=== PATIENT | female | born 1945 | race Caucasian/White ===

== ENCOUNTER → 2017-01-01 | Outpatient (CLI) | payer OTHER | LOC: BMCIMAGING 12:51 | PROVIDERS: ATTEND Internal Medicine | DX: N63 Unspecified lump in breast (principal); Z85.3 Personal history of malignant neoplasm of breast ==

== ENCOUNTER 2017-06-12 11:15 | Inpatient (IN) | payer OTHER ==
[2017-06-28] MEDS ORDERED: TRANEXAMIC ACID 3,000 MG in NS 50 ML IRR ONE (06:00)
[2017-06-28] MEDS ORDERED: ROPIVACAINE 0.2% 80 MG, EPINEPHrine 0.2 MG, KETOROLAC TROMETHAMINE 30 MG in BAG 0 ML IU ONE (06:00)
--- NOTE | 2017-06-28 07:06 | PDHPUP ---
History & Physical Update H&P update statement: This history and physical update is based on an assessment of the patient which was completed after admission or registration (within 24 hours), but prior to the surgery/procedure. H&P update: H&P reviewed & patient examined, no change in patient's condition since H&P completed
[2017-06-28] MEDS ORDERED: TRANEXAMIC ACID 3,000 MG/50 ML BAG IRR ONE (07:14)
[2017-06-28] MEDS ORDERED: VANCOMYCIN 1 GM VIAL ONE (07:14)
[2017-06-28] MEDS ORDERED: ACETAMINOPHEN 325 MG TAB PO ONE (07:29)
[2017-06-28] MEDS ORDERED: FAMOTIDINE 20 MG TAB PO ONE (07:29)
[2017-06-28] MEDS ORDERED: DEXAMETHASONE 4 MG/ML VIAL IVP ONE (07:29)
[2017-06-28] MEDS ORDERED: ceFAZolin 2 GM/DEXTROSE 100 ML IV ONE (07:29)
[2017-06-28] MEDS ORDERED: MIDAZOLAM 2 MG/2 ML VIAL IVP ONE (07:57)
--- NOTE | 2017-06-28 07:59 | PDANEPAE ---
ANE History of Present Illness r knee osteoarthrtitis, knee pain ANE Past Medical History - Cardiovascular History Hx Hypertension: Yes Hx Arrhythmias: No Hx Chest Pain: No Hx Coronary Artery / Peripheral Vascular Disease: No Hx CHF / Valvular Disease: No Hx Palpitations: No - Pulmonary History Hx COPD: No Hx Asthma/Reactive Airway Disease: No Hx Recent Upper Respiratory Infection: No Hx Oxygen in Use at Home: No Hx Sleep Apnea: No Sleep Apnea Screening Result - Last Documented: Negative - Neurologic History Hx Cerebrovascular Accident: No Hx Seizures: No Hx Dementia: No - Endocrine History Hx Diabetes: No - Renal History Hx Renal Disorders: No - Liver History Hx Hepatic Disorders: No - Neurological & Psychiatric Hx Hx Neurological and Psychiatric Disorders: No - Cancer History Hx Cancer: Yes 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 rotator cuff-bilat. tonsillectomy age 6. T.L. ANE Review of Systems Review of Systems: - Exercise capacity METS (RN): 4 METS ANE Patient History - Allergies Allergies/Adverse Reactions: Penicillins Allergy (Verified 05/29/17 14:28) Rash - Home Medications Home Medications: Losartan/Hydrochlorothiazide [Losartan-Hctz 50-12.5 mg Tab] 1 each PO DAILY [Last Taken Unknown] Pravastatin Sodium 20 mg PO HS 05/29/17 [Last Taken Unknown] - Smoking Hx Smoking Status: Never smoked ANE Labs/Vital Signs - Vital Signs Height: 158.75 cm Weight: 53.977 kg ANE Physical Exam - Airway Neck exam: FROM Mallampati Score: Class 1 Mouth exam: normal dental/mouth exam - Pulmonary Pulmonary: no respiratory distress - Cardiovascular Cardiovascular: regular rate and rhythym - ASA Status ASA Status: II ANE Anesthesia Plan Anesthesia Plan: MAC, spinal Regional Anesthesia: adductor canal FNB
[2017-06-28] MEDS ORDERED: LIDOCAINE 1% 2 ML INJ ID PRN (08:12)
[2017-06-28] MEDS ORDERED: LR 1,000 ML IV ONE (08:12)
[2017-06-28] MEDS ORDERED: fentaNYL 100 MCG/2 ML INJ ONE (08:45)
[2017-06-28] MEDS ORDERED: PROPOFOL/EMULSION 500 MG/50 ML BOTTLE IV ONE (08:45)
[2017-06-28] MEDS ORDERED: DIPHENOXYLATE/ATROPINE LOMOTIL 1 TAB PO PRN (08:53)
[2017-06-28] MEDS ORDERED: TEMAZEPAM 15 MG CAP PO PRN (08:53)
[2017-06-28] MEDS ORDERED: PROMETHAZINE HCL 25 MG/ML INJ IVP PRN (08:53)
[2017-06-28] MEDS ORDERED: BISACODYL 10 MG SUPP PR PRN (08:53)
[2017-06-28] MEDS ORDERED: METOCLOPRAMIDE 10 MG/2 ML VIAL IVP PRN (08:53)
[2017-06-28] MEDS ORDERED: ONDANSETRON DISINTEGRATING 4 MG TAB PO PRN (08:53)
[2017-06-28] MEDS ORDERED: CYCLOBENZAPRINE 10 MG TAB PO PRN (08:53)
[2017-06-28] MEDS ORDERED: MAGNESIUM HYDROXIDE 30 ML UDCUP PO PRN (08:53)
[2017-06-28] MEDS ORDERED: POLYETHYLENE GLYCOL 3350 17 GM PKT PO PRN (08:53)
[2017-06-28] MEDS ORDERED: diphenhydrAMINE 25 MG CAP PO PRN (08:53)
[2017-06-28] MEDS ORDERED: LACTULOSE 20 GM/30 ML UDCUP PO PRN (08:53)
[2017-06-28] MEDS ORDERED: PROMETHAZINE HCL 25 MG SUPPR PR PRN (08:53)
[2017-06-28] MEDS ORDERED: ONDANSETRON 4 MG/2 ML VIAL IVP PRN (08:53)
[2017-06-28] MEDS ORDERED: NALOXONE HCL 0.4 MG/ML INJ IVP PRN (09:18)
[2017-06-28] MEDS ORDERED: HYDROmorphONE/DILAUDID 1 MG/ML INJ IVP PRN (09:18)
[2017-06-28] MEDS ORDERED: fentaNYL 100 MCG/2 ML INJ IVP PRN (09:18)
[2017-06-28] MEDS ORDERED: ROCURONIUM 50 MG/5 ML VIAL ONE ×2 (09:58)
--- NOTE | 2017-06-28 10:14 | POSTOPPROG ---
Post Op Note Date of Operation: 06/28/17 Surgeon: Beverly Carballo [employer] Specialist Manager: Hanna Anesthesiologist: Jay Anesthesia: Spinal Pre-op Diagnosis: R knee DJD Post-op Diagnosis: same Indication: pain Procedure: R TKA Findings: DJD knee Inf/Abcess present in the surg proc area at time of surgery?: No EBL: 100-500
--- NOTE | 2017-06-28 10:18 | POSTANESTH ---
Post Anesthetic Evaluation Cardiovascular Status: Normal, Stable Respiratory Status: Normal, Stable Level of Consciousness/Mental Status: Can Participate in Eval Pain Control: Adequate, Prn Tx Ordered Nausea/Vomiting Control: Adequate, Prn Tx Ordered Complications Possibly Related to Anesthesia: None Noted
[2017-06-28] MEDS: ACETAMINOPHEN 325 MG TAB PO SCH ×3 (12:58→23:32)
[2017-06-28] MEDS: LOSARTAN/HCTZ 50/12.5 1 TAB PO SCH (13:04)
[2017-06-28] MEDS: SENNOSIDES/DOCUSATE SODIUM TAB PO SCH ×2 (14:05→21:26)
[2017-06-28] MEDS: LR 1,000 ML IV SCH ×2 (15:48→23:33)
[2017-06-28] MEDS: ceFAZolin 2 GM/DEXTROSE 100 ML IV SCH ×2 (15:48→21:28)
[2017-06-28 16:19] VITALS: RESP 16
[2017-06-28] MEDS: oxyCODONE IR 5 MG TAB PO PRN ×2 (19:33→23:33)
[2017-06-28] MEDS ORDERED: PRAVASTATIN SODIUM 20 MG TAB PO SCH (21:00)
[2017-06-28] MEDS: ASPIRIN 325 MG TAB PO SCH (21:27)
[2017-06-28] MEDS: FAMOTIDINE 20 MG TAB PO SCH (21:27)
--- NOTE | 2017-06-29 00:29 | GOP ---
[f rep st] OPERATIVE REPORT DATE OF OPERATION: 06/28/2017 SURGEON: Pili Carballo MD ANESTHESIA: Spinal. PREOPERATIVE DIAGNOSIS: Right knee osteoarthritis. POSTOPERATIVE DIAGNOSIS: Right knee osteoarthritis. PROCEDURE PERFORMED: Right total knee arthroplasty. FINDINGS: ESTIMATED BLOOD LOSS: 30 cc. INDICATIONS: This is a 71-year-old elderly female with severe and progressive pain and deformity of the right knee unresponsive to conservative care. Risks and benefits of the surgical intervention were explained in detail. DESCRIPTION OF PROCEDURE: The patient was brought to the operative room and placed on the table in the supine position. Spinal anesthesia was induced without difficulty. A pneumatic tourniquet was applied about the right proximal thigh, and the leg was prepped and draped in a sterile fashion. The leg fagan was applied. After exsanguination by elevation the tourniquet was inflated to 250 mm of mercury. Incision was made anterior medial from the tibial tuberosity to a point 2 cm proximal to the superior pole of the patella. Medial parapatellar arthrotomy was carried out from the superior pole of the patella and posteriorly in line with the fibers of the Type 2 VMO. The medial collateral ligament was elevated and the infrapatellar fat pad was resected. The patella was everted and the articular surface was excised. A 32 mm patellar button was placed. The distal femoral guide hole was drilled and the 60 degree alignment charis was placed. A 10 mm distal femoral cut was made without difficulty. Attention was turned to the tibia and a standard 9 mm cut based on the lateral tibial condyle was performed. The tibial articular surface was excised without difficulty. Attention was turned back to the femur and a size 2 femoral cutting block was positioned. Anterior, posterior, and chamfer cuts were made, followed by the intercondylar box cut. The knee was extended and the remnants of the medial and lateral meniscus were excised. The posterior capsule was injected with ropivacaine, epinephrine and Toradol. A size 32 triathlon tibial tray was positioned. Trial reduction was then carried out. There was excellent range of motion, alignment, and stability using the 11 mm polyethylene. All trials were then removed. The joint was thoroughly irrigated and carefully dried. Two packages of cement and 2 grams of vancomycin were mixed in the vacuum mixer and placed on the fixation surfaces of all surfaces of the components. The components were implanted and all excess cement was thoroughly removed. The permanent 11 mm polyethylene was placed without difficulty. The tourniquet was deflated and all bleeders were coagulated. The wound was thoroughly irrigated and closed using interrupted sutures of 2-0 Vicryl for the joint capsule. The subcu was closed with 3-0 Vicryl and the skin with 4-0 Monocryl. Dermabond and Steri-Strips were applied followed by a compressive dressing. The patient was then moved from the operating room to the recovery room in good condition, having tolerated the procedure well. PATHOLOGY: Severe patellofemoral medial compartmental osteoarthritis. /[id number]/MODL MTDD
[2017-06-29 05:10] VITALS: TEMP 98.4
[2017-06-29 05:11] LABS: HEMATOCRIT 30.6 % (38.0-47.0); HEMOGLOBIN 10.6 g/dL (12.6-16.3)
[2017-06-29] MEDS: ACETAMINOPHEN 325 MG TAB PO SCH ×2 (05:16→10:48)
[2017-06-29] MEDS: oxyCODONE IR 5 MG TAB PO PRN ×2 (05:17→10:49)
[2017-06-29 07:18] VITALS: BP 133/85; PULSE 62; O2SAT 100
[2017-06-29] MEDS: LOSARTAN/HCTZ 50/12.5 1 TAB PO SCH (09:03)
[2017-06-29] MEDS: SENNOSIDES/DOCUSATE SODIUM TAB PO SCH (09:04)
[2017-06-29] MEDS: ASPIRIN 325 MG TAB PO SCH (09:04)
[2017-06-29] MEDS: FAMOTIDINE 20 MG TAB PO SCH (09:05)
--- NOTE | 2017-06-29 10:23 | SOAPPROG ---
<Elías Luong - Last Filed: 06/29/17 10:22> SOAP Progress Note Assessment/Plan: Assessment: Patient is doing well POD 1 s/p R TKA Pain management: pain is well controlled on oral pain meds. VTE ppx: recommend aspirin daily for 3 weeks, cont AURE and SCDs Anemia: level is expected initially postop. Asymptomatic. Continue to monitor D/c planning: d/c to home today pending release from PT Plan: 06/29/17 10:22 Objective: Vital Signs Temp Pulse Resp BP Pulse Ox 36.9 C 62 16 133/85 H 100 06/29/17 07:16 06/29/17 07:16 06/29/17 07:16 06/29/17 07:16 06/29/17 07:16 Laboratory Results 06/29/17 04:58 06/28/17 06/29/17 06/30/17 05:59 05:59 05:59 Intake Total 1663 Output Total 100 Balance 1563 ICD10 Worksheet Patient Problems: Problems Problem Status Onset Osteoarthritis of knee Acute - ICD10 Problem Qualifiers (1) Osteoarthritis of knee QualifierTitle: Osteoarthritis type: primary Laterality: right Qualified Code(s): M17.11 - Unilateral primary osteoarthritis, right knee <Beverly Carballo - Last Filed: 06/29/17 11:52> SOAP Progress Note Assessment/Plan: Assessment: Small amount of drainage on dressing. Dressing changed Plan: 06/29/17 11:52 Objective: Vital Signs Temp Pulse Resp BP Pulse Ox 36.9 C 62 16 133/85 H 100 06/29/17 07:16 06/29/17 07:16 06/29/17 07:16 06/29/17 07:16 06/29/17 07:16 Laboratory Results 06/29/17 04:58 06/28/17 06/29/17 06/30/17 05:59 05:59 05:59 Intake Total 1663 Output Total 100 Balance 1563
--- NOTE | 2017-06-29 11:56 | ASDISCHSUM ---
Discharge Information Plan Status:Home with No Needs Medically Cleared to Leave:06/29/2017 Discharge Date:06/29/2017 CM D/C Disposition:Home, Routine, Self-Care ADT D/C Disposition:Home, Routine, Self-Care Projected Discharge Date:06/29/2017 01:00 PM Transportation at D/C:Family Discharge Delay Reason: Follow-Up Date:06/29/2017 01:00 PM Discharge Slot: Final Diagnosis:Osteoarthritis of knee Placement Information Patient Contact Information Contact Name:MACI Relationship:Daughter Address: Work Phone: City: [facility] Phone: State/[place] Code: Email: Financial Information Financial Class:MC Primary Plan Desc:MEDICARE INPATIENT Primary Plan Number:[id number] Secondary Plan Desc:[employer] PPO Secondary Plan Number:[id number] Assessment Information Intervention Information
--- NOTE | 2017-06-29 11:57 | ASMTCMCOM ---
CM Note CM Note Notes: Patient discharging home to follow up with outpatien physical therapy. No additional case management needs apparent at this time. Date Signed: 06/29/2017 11:57 AM Electronically Signed By:LESA Frederick
== END 2017-06-29 12:05 | disposition home or self-care (01) | DRG 470 ==
LOC: F3N 06-28 06:06
PROVIDERS: ADMIT Orthopaedic Surgery; ATTEND Orthopaedic Surgery
PROC: 0SRC0J9 Replacement of Right Knee Joint with Synthetic Substitute, Cemented, Open Approach (ICD-10-PCS; principal; 2017-06-28 08:15)
DX: M17.11 Unilateral primary osteoarthritis, right knee (principal)
CPT/HCPCS: 97116-GP; 97161-GP; 97165-GO; C1713; G8978-GP-CI; G8978-GP-CJ; G8979-GP-CI; G8980-GP-CI; G8987-GO-CI; G8989-GO-CI; J0171; J0690; J1100; J1885; J2250; J2704; J2795; J3010; J3370

== ENCOUNTER → 2017-11-07 | Outpatient (CLI) | payer OTHER | LOC: BMCIMAGING 07:56 | PROVIDERS: ATTEND Internal Medicine | DX: J40 Bronchitis, not specified as acute or chronic (principal) ==

== ENCOUNTER 2018-01-18 01:14 | Emergency (ER) | payer OTHER ==
--- NOTE | 2018-01-18 01:23 | EDPHY ---
H & P Time Seen by Provider: 01/18/18 01:23 HPI/ROS: HPI CHIEF COMPLAINT: Mechanical Fall, Right Shoulder Pain. HISTORY OF PRESENT ILLNESS: Patient is a 72-year-old female, she has a history of rotator cuff injury of both shoulders and remote history rotator cuff surgery on her right years ago, hypertension, hyperlipidemia, she presents emergency room after she took a mechanical trip and fall and tripped over a rug landing on her right shoulder. She now has right lateral shoulder pain inability to move the arm. Denies chest pain or shortness of breath. Denies head strike. She does report that she had multiple glasses of wine this evening. Daughter accompanies her at bedside. Pain is located right lateral shoulder worse with movement currently 6/10. Past Medical History: Hypertension, hyperlipidemia, rotator cuff injury Past Surgical History: Rotator cuff repair of the right shoulder Social History: Denies daily use of drugs alcohol tobacco did drink this evening. Family History: Noncontributory ROS REVIEW OF SYSTEMS: A comprehensive 10 point review of systems is otherwise negative aside from elements mentioned in the history of present illness. Exam Constitutional smells of alcohol, triage nursing summary reviewed, vital signs reviewed, awake/alert. Eyes normal conjunctivae and sclera, EOMI, PERRLA. HENT normal inspection, atraumatic, moist mucus membranes, no epistaxis, neck supple/ no meningismus, no raccoon eyes. Respiratory clear to auscultation bilaterally, normal breath sounds, no respiratory distress, no wheezing. Cardiovascular rate normal, regular rhythm, no murmur, no edema, distal pulses normal. Gastrointestinal soft, non-tender, no rebound, no guarding, normal bowel sounds, no distension, no pulsatile mass. Genitourinary no CVA tenderness. Musculoskeletal right upper extremity: Good distal pulse, good radial pulse, good cap refill, good customer operations representative strength, limited range of motion of the right shoulder due to pain, tender palpation over the lateral and humeral neck of the right shoulder. No obvious dislocation on exam, distally neurovascular intact, x-ray nerve intact, no midline vertebral tenderness, full range of motion, no calf swelling, no tenderness of extremities, no meningismus, good pulses, neurovascularly intact. Skin pink, warm, & dry, no rash, skin atraumatic. Neurologic awake, alert and oriented x 3, AAOx3, moves all 4 extremities equally, motor intact, sensory intact, CN II-XII intact, normal cerebellar, normal vision, normal speech. Psychiatric normal mood/affect. Heme/Lymph/Immune no lymphadenopathy. Differential Diagnosis: Includes but is not limited to in a particular order right shoulder injury, right shoulder sprain, fracture, humeral neck fracture, dislocation Medical Decision Making: Plan for this patient x-ray of the right shoulder rule out dislocation, versus fracture. Re-evaluation: 0200: X-ray the right shoulder shows a anterior shoulder dislocation. No evidence of fracture. 0210AM: Shoulder relocation procedure: Indication anterior shoulder dislocation Total procedure time 20 min Patient was verbally consented to have gentle traction downward and external rotation of the right arm she reduce the right anterior shoulder dislocation. With gentle downward traction external rotation I was able to relocate her right anterior shoulder dislocation after extensive massage of the right shoulder. She tolerated this very well. There were no complications. Post shoulder relocation she was neurovascular intact good distal pulse x-ray nerve intact. Good cap refill. No loss of sensation. Patient was placed in a sling ice pack for comfort. I recommend she follows up with Orthopedics. Source: Patient - Medical/Surgical History Hx Asthma: No Hx Chronic Respiratory Disease: No Hx Diabetes: No Hx Cardiac Disease: No Hx Renal Disease: No Hx Cirrhosis: No Hx Alcoholism: No Hx HIV/AIDS: No Hx Splenectomy or Spleen Trauma: No Other PMH: HTN, breast CA/lumpectomy, OA, rotator cuff repairs B - Social History Smoking Status: Never smoked Constitutional: Initial Vital Signs Heart Rate 74 01/18/18 01:23 Respiratory Rate 18 01/18/18 01:23 Blood Pressure 166/88 H 01/18/18 01:23 O2 Sat (%) 97 01/18/18 01:23 O2 Delivery Mode Room Air Allergies/Adverse Reactions: Penicillins Allergy (Verified 01/18/18 01:25) Rash Home Medications: Medication Instructions Recorded Losartan/Hydrochlorothiazide 1 each PO DAILY 05/29/17 [Losartan-Hctz 50-12.5 mg Tab] Pravastatin Sodium 20 mg PO HS 05/29/17 Acetaminophen [Tylenol 325mg (*)] 650 mg PO Q6HRS tab 06/29/17 Aspirin [Aspirin 325 mg (*)] 325 mg PO DAILY tab 06/29/17 Ibuprofen 600 mg PO 01/18/18 Departure - Departure Disposition: Home, Routine, Self-Care Clinical Impression: Shoulder dislocation Qualifiers: Encounter type: initial encounter Laterality: right Qualified Code(s): S43.004A - Unspecified dislocation of right shoulder joint, initial encounter Condition: Good Instructions: Shoulder Dislocation (ED) Additional Instructions: 1. Stay in you're sling for comfort. 3 days 2. Anti-inflammatory pain medicine 3. Ice your shoulder. 4. Follow up with Orthopedics. Referrals: Doris Zelaya MD [Primary Care Provider] - As per Instructions Bruno Buitrago MD [Medical Doctor] - As per Instructions
[2018-01-18 02:29] VITALS: BP 148/82
== END 2018-01-18 02:28 | disposition home or self-care (01) ==
PROC: 0RSJXZZ Reposition Right Shoulder Joint, External Approach (ICD-10-PCS; principal; 2018-01-18)
DX: S43.004A Unspecified dislocation of right shoulder joint, initial encounter (principal); I10 Essential (primary) hypertension; Z85.3 Personal history of malignant neoplasm of breast; Z79.82 Long term (current) use of aspirin; W01.0XXA Fall on same level from slipping, tripping and stumbling without subsequent striking against object, initial encounter
CPT/HCPCS: 23650; 73030; 99283; L3980

== ENCOUNTER → 2018-09-16 | Outpatient (CLI) | payer OTHER | LOC: FIMAGING 12:26 | PROVIDERS: ATTEND Internal Medicine | DX: Z12.31 Encounter for screening mammogram for malignant neoplasm of breast (principal); Z85.3 Personal history of malignant neoplasm of breast; Z80.3 Family history of malignant neoplasm of breast ==

== ENCOUNTER 2018-12-02 10:12 | Day surgery (SDC) | payer OTHER ==
--- NOTE | 2018-12-01 13:57 | GHP ---
[f rep st] PREOP HISTORY AND PHYSICAL DATE OF SURGERY: 12/02/2018. PREOPERATIVE DIAGNOSIS: Left hallux rigidus. HISTORY OF PRESENT ILLNESS: Patient is a 72-year-old with history of progressive left medial forefoot pain. She is having difficulty with her activity secondary to her pain despite appropriate nonoperative treatment course. PAST MEDICAL HISTORY: Positive for cancer, depression, elevated cholesterol. PAST SURGICAL HISTORY: Positive for total knee arthroplasty, carpal tunnel surgery, shoulder surgery, and tonsillectomy. MEDICATIONS: Include losartan, meloxicam, and pravastatin. ALLERGIES: She is allergic to penicillin which causes a mild rash. SOCIAL HISTORY: Negative for tobacco use. PHYSICAL EXAM: GENERAL: She is alert and oriented x3, in no acute distress. HEENT: Head is normocephalic. Pupils equal, round, reactive to light. Extraocular eye movements intact. NECK: Supple. No JVD or lymphadenopathy. CHEST: Clear to auscultation. HEART: Regular rate and rhythm. No murmurs or gallops. ABDOMEN: Soft, nontender, nondistended. No organomegaly. GENITAL/ RECTAL/BREASTS: Deferred. EXTREMITIES: Reveals mild swelling, stiffness, and tenderness at the left 1st MTP joint. ASSESSMENT: Left hallux rigidus. PLAN: The patient is scheduled to undergo left implant hemiarthroplasty. /[id number]/MODL MTDD
[2018-12-02] MEDS ORDERED: LR 1,000 ML IV ONE (10:24)
[2018-12-02] MEDS ORDERED: BUPIVACAINE 0.5% 30 ML SDV ONE (11:03)
[2018-12-02] MEDS ORDERED: MIDAZOLAM 2 MG/2 ML VIAL ONE (11:32)
[2018-12-02] MEDS ORDERED: MIDAZOLAM 2 MG/2 ML VIAL IVP ONE (11:33)
[2018-12-02] MEDS ORDERED: PROMETHAZINE HCL 25 MG/ML INJ IVP PRN (11:34)
[2018-12-02] MEDS ORDERED: HYDROCODONE/APAP 5/325 TAB PO PRN (11:34)
[2018-12-02] MEDS ORDERED: ACETAMINOPHEN 500 MG TAB PO PRN (11:34)
[2018-12-02] MEDS ORDERED: ENALAPRILAT DIHYDRATE 1.25 MG/ML VIAL IVP PRN (11:34)
[2018-12-02] MEDS ORDERED: NALOXONE HCL 0.4 MG/ML INJ IVP PRN (11:34)
[2018-12-02] MEDS ORDERED: LR 500 ML IV PRN (11:34)
[2018-12-02] MEDS ORDERED: ceFAZolin 2 GM/DEXTROSE 100 ML IV ONE (11:34)
[2018-12-02] MEDS ORDERED: ONDANSETRON 4 MG/2 ML VIAL IVP PRN (11:34)
[2018-12-02] MEDS ORDERED: fentaNYL 100 MCG/2 ML INJ IVP PRN (11:34)
--- NOTE | 2018-12-02 11:34 | PDANEPAE ---
ANE Past Medical History - Cardiovascular History Hx Hypertension: Yes Hx Arrhythmias: No Hx Chest Pain: No Hx Coronary Artery / Peripheral Vascular Disease: No Hx CHF / Valvular Disease: No Hx Palpitations: No - Pulmonary History Hx COPD: No Hx Asthma/Reactive Airway Disease: No Hx Recent Upper Respiratory Infection: No Hx Oxygen in Use at Home: No Hx Sleep Apnea: No Sleep Apnea Screening Result - Last Documented: Negative - Neurologic History Hx Cerebrovascular Accident: No Hx Seizures: No Hx Dementia: No - Endocrine History Hx Diabetes: No Obesity: no - Renal History Hx Renal Disorders: No - Liver History Hx Hepatic Disorders: No - Neurological & Psychiatric Hx Hx Neurological and Psychiatric Disorders: No - Cancer History Hx Cancer: Yes 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 L breast lumpectomy. rotator cuff-bilat. tonsillectomy age 6. T.L. ANE Review of Systems Review of Systems: - Exercise capacity METS (RN): 4 METS ANE Patient History - Allergies Allergies/Adverse Reactions: Penicillins Allergy (Verified 01/18/18 01:25) Rash - Home Medications Home medications: home medication list seen and reviewed Home Medications: Losartan/Hydrochlorothiazide [Losartan-Hctz 50-12.5 mg Tab] 1 each PO DAILY [Last Taken 12/01/18] Pravastatin Sodium 20 mg PO HS 05/29/17 [Last Taken 11/28/18] Ibuprofen 600 mg PO 01/18/18 [Last Taken 1 Week Ago ~11/25/18] - NPO status NPO Since - Liquids (Date): 12/02/18 NPO Since - Liquids (Time): 06:00 NPO Since - Solids (Date): 12/01/18 NPO Since - Solids (Time): 21:30 - Anes Hx Anes Hx: post operative nausea - Smoking Hx Smoking Status: Never smoked ANE Labs/Vital Signs - Vital Signs Blood Pressure: 146/63 Heart Rate: 72 Respiratory Rate: 19 O2 Sat (%): 97 Height: 160.02 cm Weight: 54.431 kg ANE Physical Exam - Airway Neck exam: FROM Mallampati Score: Class 2 Mouth exam: normal dental/mouth exam - Pulmonary Pulmonary: no respiratory distress, no rales or rhonchi, clear to auscultation - Cardiovascular Cardiovascular: regular rate and rhythym, no murmur, rub, or gallop - ASA Status ASA Status: II ANE Anesthesia Plan Anesthesia Plan: MAC
[2018-12-02] MEDS ORDERED: CEFAZOLIN 2 GM/DEXTROSE/100 ML BAG IV ONE (11:35)
--- NOTE | 2018-12-02 11:36 | POSTOPPROG ---
Post Op Note Date of Operation: 12/02/18 Surgeon: Baltazar Yoder Anesthesia: IV Sedation Pre-op Diagnosis: L hallux Rigidus Post-op Diagnosis: Same Procedure: L 1st MTP implant hemiarthroplasty Inf/Abcess present in the surg proc area at time of surgery?: No EBL: Minimal
[2018-12-02] MEDS ORDERED: fentaNYL 100 MCG/2 ML INJ ONE (11:41)
[2018-12-02] MEDS ORDERED: PROPOFOL 200 MG/20 ML VIAL ONE (11:41)
[2018-12-02] MEDS ORDERED: ONDANSETRON 4 MG/2 ML VIAL ONE (11:45)
--- NOTE | 2018-12-02 12:35 | POSTANESTH ---
Post Anesthetic Evaluation Cardiovascular Status: Normal, Stable, Similar to Pre-Op Cond Respiratory Status: Normal, Stable, Similar to Pre-op Cond. Level of Consciousness/Mental Status: Can Participate in Eval, Alert and Oriented Pain Control: Adequate, Prn Tx Ordered Nausea/Vomiting Control: Adequate, Prn Tx Ordered Complications Possibly Related to Anesthesia: None Noted
--- NOTE | 2018-12-02 13:32 | GOP ---
[f rep st] OPERATIVE REPORT DATE OF OPERATION: 12/02/2018 SURGEON: Baltazar Yoder MD ANESTHESIA: IV sedation with local block. PREOPERATIVE DIAGNOSIS: Left hallux rigidus. POSTOPERATIVE DIAGNOSIS: Left hallux rigidus. PROCEDURE PERFORMED: 1. Left 1st metatarsophalangeal joint cheilectomy and debridement. 2. Left 1st metatarsophalangeal joint implant hemiarthroplasty (Cartiva). 3. Intraoperative use of fluoroscopy. FINDINGS: ESTIMATED BLOOD LOSS: Negligible. INDICATIONS: Patient is a 72-year-old with history of progressive 1st MTP pain. Clinically and radiographically, she is noted to have advanced hallux rigidus. Based on her persistence of symptoms refractory to nonoperative treatment, she is interested in pursuing operative treatment. From an operative standpoint, end-stage arthritis operations for 1st MTP joint including arthrodesis and implant hemiarthroplasty were discussed in detail with anticipated risks and benefits of both. Patient elected to pursue Cartiva implant. The patient acknowledged she understood the potential risks of the operation including, not limited to bleeding, infection, neurovascular damage, loss of limb or limb function, pain or functional limitations despite operative treatment, implant failure requiring removal, revision, or conversion to arthrodesis, and anesthetic risks. She acknowledged she understood the potential risks of planned procedure and postoperative plan well, and had all questions answered prior to surgery. She gave her consent for the operative procedure. DESCRIPTION OF PROCEDURE: The patient was brought in the operating room after IV antibiotics were administered. She was placed in supine position on the operating room table. IV sedation was administered by the anesthesiologist, and a local block with 0.5% Marcaine without epinephrine was administered. The tourniquet was placed on her left calf. The left lower leg was prepped and draped in standard sterile fashion. After marking the incision and Rico wrap exsanguination, tourniquet was inflated to 250. A longitudinal incision was made along the dorsal aspect of 1st MTP joint. Skin and subcutaneous tissue were sharply incised. Sharp dissection was carried just lateral to the EHL down to the capsule. The capsule was reflected medially and laterally. End- stage cartilage loss was noted. Utilizing saw and rongeur, the bony prominences on the dorsal, medial, and lateral aspects of the metatarsal head and proximal phalanx were removed. The joint was manipulated, freeing up the plantar capsule. A guide pin from the Cartiva implant was placed in the central aspect of the metatarsal head, after confirming that a 10 mm implant would be the optimal size. Guide pin position was confirmed fluoroscopically. A 10 mm coring reamer was utilized to create a trough for the implant. A 10 mm Cartiva implant was impacted into place, remaining approximately 3 mm proud to the joint. The toe was taken through range of motion and found to have full motion with no impingement. Attention was directed toward closure. The capsule was loosely reapproximated with 2-0 Vicryl suture in interrupted fashion. Subcutaneous tissue was closed with 3-0 Vicryl suture in interrupted fashion. Skin closed with 4-0 nylon interrupted sutures. 0.5% Marcaine without epinephrine was injected in the wound site. The wounds dressed with sterile Adaptic, 4 x 4, Kerlix, and Coban. The patient tolerated the procedure well and was taken to the recovery room, extubated in stable condition postoperatively. All sponge, needle, and instrument counts were reported as being correct. DRAINS: None. COMPLICATIONS: None. PLAN: The patient will be discharged home weightbearing as tolerated postop shoe. /[id number]/MODL MTDD
[2018-12-02 13:46] VITALS: BP 151/65
== END 2018-12-02 13:30 | disposition home or self-care (01) ==
LOC: FSGY 10:12
PROVIDERS: ATTEND Orthopaedic Surgery Foot and Ankle Surgery
DX: M20.22 Hallux rigidus, left foot (principal); E78.5 Hyperlipidemia, unspecified; F32.9 Major depressive disorder, single episode, unspecified; I10 Essential (primary) hypertension; Z85.9 Personal history of malignant neoplasm, unspecified; Z96.659 Presence of unspecified artificial knee joint; Z88.0 Allergy status to penicillin; Z86.000 Personal history of in-situ neoplasm of breast; Z92.3 Personal history of irradiation
CPT/HCPCS: J0690; J2250; J2405; J2704; J3010